=== PATIENT | female | born 1955 | race Caucasian/White ===

== ENCOUNTER 2024-07-19 08:21 | Outpatient (RCR) | payer MEDICARE, OTHER, SELFPAY | END 2024-07-19 23:59 | disposition home or self-care (01) | LOC: RPT 08:21 | PROVIDERS: ATTENDING PHYSICIAN Obstetrics & Gynecology; FAMILY PHYSICIAN Internal Medicine | DX: N39.41 Urge incontinence (principal); R35.0 Frequency of micturition; M62.89 Other specified disorders of muscle; Z73.6 Limitation of activities due to disability | CPT/HCPCS: 97162; 97530 ==

== ENCOUNTER 2024-08-08 13:15 | Outpatient (RCR) | payer MEDICARE, OTHER, SELFPAY | END 2024-08-09 07:36 | disposition home or self-care (01) | LOC: RPT 13:15 | PROVIDERS: ATTENDING PHYSICIAN Obstetrics & Gynecology; FAMILY PHYSICIAN Internal Medicine | DX: N39.41 Urge incontinence (principal); R35.0 Frequency of micturition; M62.89 Other specified disorders of muscle; Z73.6 Limitation of activities due to disability | CPT/HCPCS: 97530 ==